=== PATIENT | male | born 1935 | race African-American/Black ===

== ENCOUNTER 2019-03-01 10:12 | Emergency (ER) | payer OTHER ==
--- NOTE | 2019-03-01 10:52 | PDOC ---
History of Present Illness - General Chief Complaint: Syncope/Near Syncope Stated Complaint: Syncope/Near Syncope Time Seen by Provider: 03/01/19 10:37 - History of Present Illness Initial Comments: The pt is an 84M w/ a history of HTN, HLD, CKD who presents for evaluation s/p syncopal fall from standing this AM. The pt reports walking to the bathroom this AM, feeling 'flushed' and sweating, then falling backwards. He is unsure of LOC. He denies hitting his head. He denies MANDEL, vision changes, chest pain before/after, dizziness before/after the event. He denies recent illness, fevers /chills, dysuria, hematuria, rash, or change in sensation. 03/01/19 10:51 Past History - Past Medical History Allergies/Adverse Reactions: Allergies Allergy/AdvReac Type Severity Reaction Status Date / Time No Known Allergies Allergy Verified 03/01/19 11:26 Home Medications: Ambulatory Orders Aspirin [ASA -] 81 mg PO DAILY 03/01/19 Azelastine HCl 1 spray NS DAILY 03/01/19 Donepezil HCl 10 mg PO DAILY 03/01/19 Latanoprost/Pf [Latanoprost 0.005% Eye Drop] 1 drop OU HS 03/01/19 Multivitamin/Iron/Folic Acid [Centrum Adults Tablet] 1 each PO DAILY 03/01/19 Nifedipine ER [Procardia Xl -] 60 mg PO DAILY 03/01/19 Propylene Glycol/Peg 400 [Systane 0.3-0.4% Eye Drops] 1 drop OP BID 03/01/19 Simvastatin 40 mg PO HS 03/01/19 Tamsulosin HCl 0.4 mg PO HS 03/01/19 Timolol 0.5% [Timoptic 0.5%] 1 drop OU DAILY 03/01/19 Review of Systems - Review of Systems Able to Perform ROS?: Yes Comments:: GENERAL/CONSTITUTIONAL: No fever or chills. No weakness HEAD, EYES, EARS, NOSE AND THROAT: No change in vision. No change in hearing. No sore throat CARDIOVASCULAR: No chest pain or shortness of breath RESPIRATORY: Denies cough, hemoptysis GASTROINTESTINAL: No nausea, vomiting, diarrhea or constipation GENITOURINARY: No dysuria, frequency, or change in urination MUSCULOSKELETAL: No joint or muscle swelling or pain. No neck or back pain SKIN: No rash NEUROLOGIC: No headache, or change in strength/sensation ENDOCRINE: No increased thirst. No abnormal weight change HEMATOLOGIC/LYMPHATIC: No anemia, easy bleeding, or history of blood clots ALLERGIC/IMMUNOLOGIC: No hives or skin allergy 03/01/19 13:54 Is the patient limited Spanish proficient: No *Physical Exam - Vital Signs Initial Vital Signs Temp Pulse Resp BP Pulse Ox 97.6 F 113 H 18 125/101 H 97 03/01/19 10:15 03/01/19 10:15 03/01/19 10:15 03/01/19 10:15 03/01/19 10:15 - Physical Exam GENERAL: Awake, alert, and oriented to person/place/time, in no acute distress HEAD: No signs of trauma, normocephalic, atraumatic EYES: PERRLA, EOMI, sclera anicteric, conjunctiva clear ENT: Hearing grossly normal, nares patent, oropharynx clear without exudates. Moist mucosa LUNGS: No distress, speaks in full sentences, clear to auscultation bilaterally HEART: Irregularly irregular rhythm and tachycardic, normal S1 and S2, no murmurs appreciated, peripheral pulses normal and equal bilaterally ABDOMEN: Soft, nontender, normoactive bowel sounds. No guarding, no rebound EXTREMITIES: Normal inspection, Normal range of motion, no edema. No clubbing or cyanosis NEUROLOGICAL: Cranial nerves II through XII grossly intact. Normal speech, normal gait, no focal sensorimotor deficits SKIN: Warm, Dry ED Treatment Course - LABORATORY CBC & Chemistry Diagram: 03/01/19 11:15 03/01/19 11:15 - ADDITIONAL ORDERS Additional order review: Laboratory Results 03/01/19 10:40 POC Glucometer 115 03/01/19 10:40 POC Glucometer 115 - RADIOLOGY Radiology Studies Ordered: Category Date Time Status HEAD CT WITHOUT CONTRAST [CT] Stat CT Scan 03/01/19 10:49 Ordered CHEST X-RAY PORTABLE* [RAD] Stat Radiology 03/01/19 10:50 Ordered Radiograph Interpretation: CT/HEAD CT WITHOUT CONTRAST Impression: Moderate atrophy. 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 Gross evidence of a focal otherwise, no gross acute intracranial pathology is identified. Correlate clinically for further evaluation RAD/CHEST X-RAY PORTABLE* Chest: Syncope. A single view of the chest reveals a large heart, normal aorta and normal jair. Lungs are clear. The angles are sharp and soft tissues are intact. There are degenerative changes. Impression: No acute chest pathology. 03/01/19 13:13 Medical Decision Making - Medical Decision Making The pt is an 84M w/ a history of HTN, HLD, CKD who presents for evaluation s/p syncopal fall from standing this AM. No leukocytosis No anemia Lytes unremarkable Cr 1.5 LFTs wnl Trop I wnl ECG w/ a-fib; HR 107; QTc 437; no axis deviation, no JOSELUIS A-fib resolved, pt HR 86 NSR Case discussed with Dr. Brito, will not start AC at this time Pt told to follow up with his Career Education Teacher Pt has appointment this week with his PCP 03/01/19 14:06 Note: The patient insists on leaving the emergency dept and is signing out against medical advice. The patient understands the risks and complications that may result from the refusal of medical care and admission which includes and permanent disability. The patient has the mental capacity of understanding the risks of refusing care and is capable of making an informed decision. The patient was instructed to return to the emergency department should his change his mind regarding medical care or should his condition worsen. The patient signed the Against Medical Advice form. 03/01/19 14:07 Discharge - Discharge Information Problems reviewed: Yes Clinical Impression/Diagnosis: Fall Qualifiers: Encounter type: initial encounter Qualified Code(s): W19.XXXA - Unspecified fall, initial encounter Syncope Qualifiers: Syncope type: unspecified Qualified Code(s): R55 - Syncope and collapse Condition: Good Disposition: AGAINST MEDICAL ADVICE - Admission No - Follow up/Referral Referrals: Flash Mojica [Primary Care Provider] - - Patient Discharge Instructions Patient Printed Discharge Instructions: DI for Syncope in Adults (Fainting) Additional Instructions: You were seen in the Emergency Department for evaluation after a fall. You initial labs and imaging were unremarkable. Review the handout provided. Follow up with your mannequin wig maker this week. Return to the Emergency Department if you have a repeat fall, any worsening symptoms, dizziness, chest pain, nausea/ vomiting, trouble breathing, vision changes, changes in sensation, or any new/ concerning symptoms. - Post Discharge Activity
[2019-03-01 11:07] VITALS: BMI 27.6
[2019-03-01] MEDS ORDERED: CEFTRIAXONE 1 GM/50 ML BAG ONE (11:13)
[2019-03-01 11:26] LABS: BASO % 0.3 % (0-2.0); EOS % 1.4 % (0-4.5); HEMATOCRIT 37.6 % (35.4-49); HEMOGLOBIN 12.5 GM/dL (11.7-16.9); LYMPH % 9.8 % (8-40); MCH 33.9 pg (25.7-33.7); MCHC 33.2 g/dl (32.0-35.9); MEAN PLT VOLUME 9.3 fl (7.5-11.1); MONO % 7.5 % (3.8-10.2); PLATELET COUNT 201 K/MM3 (134-434); RBC 3.69 M/mm3 (4.00-5.60); RDW 13.8 % (11.9-15.9); WHITE BLOOD COUNT 7.4 K/mm3 (4.0-10.0)
--- NOTE | 2019-03-01 11:36 | PDOC ---
Attending Attestation - Resident Resident Name: Mayco Mendoza - ED Attending Attestation I have performed the following: I have examined & evaluated the patient, The case was reviewed & discussed with the resident, I agree w/resident's findings & plan, Exceptions are as noted - HPI HPI: 03/01/19 12:25 Mr. Gaitan is an 84 yo M w/ a history of HTN, HLD, CKD who presents for evaluation s/p syncopal fall from standing this AM. Pt sates he was in his usual state of health in PT He stood to walk and passed out No chest pain, no palpitations No nausea or vomiting 03/01/19 13:27 - Physicial Exam PE: 03/01/19 11:35 GENERAL: The patient is in no acute distress. ENT: Moist mucous membranes. NECK: Normal range of motion, supple LUNGS: Breath sounds equal, clear to auscultation bilaterally. No wheezes, and no crackles. HEART:Regular rate and rhythm, normal S1 and S2 without murmur, rub or gallop. ABDOMEN: Soft, nontender, normoactive bowel sounds. EXTREMITIES: Normal range of motion, no edema. NEUROLOGICAL: Cranial nerves II through XII grossly intact. Normal speech. No focal neurological deficits. SKIN: Warm, Dry, normal turgor, no rashes or lesions noted. 03/01/19 12:25 03/01/19 13:33 - Medical Decision Making 03/01/19 12:26 EKG: A. fib rate of 107 bpm axis normal intervals are normal no ST elevation or depression artifact at baseline poor R wave progression 03/01/19 12:26 Laboratory Tests 03/01/19 03/01/19 03/01/19 11:15 11:15 11:15 WBC 7.4 Hgb 12.5 Hct 37.6 Plt Count 201 BUN 27.4 H Creatinine 1.5 H Troponin I < 0.02 03/01/19 13:34 Pt does not know if he has had atrial fibrillation before Will plan to admit (pt CHAD2-VASC = 5) Will contact Cardiology 03/01/19 13:37 CT head: chronic infarct in the right basal ganglia Will plan to admit 03/01/19 13:48 Admission discussed with patient and his fiancee Neither of them want him to be admitted We have discussed the risk of stroke, Afib etc Will consult [facility] (pt does not know the name of his welding specialist)
[2019-03-01 12:03] LABS: BILIRUBIN,TOTAL 0.5 mg/dL (0.2-1); BLOOD UREA NITROGEN 27.4 mg/dL (7-18); CALCIUM 8.8 mg/dL (8.5-10.1); CREATININE 1.5 mg/dL (0.55-1.3); POTASSIUM 4.3 mmol/L (3.5-5.1); TOT PROT 7.8 g/dl (6.4-8.2)
[2019-03-01 14:37] VITALS: BP 121/74; TEMP 97.9
[2019-03-01 14:51] VITALS: PULSE 70
--- NOTE | 2019-03-01 15:20 | CON.CARD ---
Consult Consult Specialty:: Cardiology Referred by:: ER Reason for Consultation:: new afib - History of Present Illness Chief Complaint: fall History of Present Illness: 84 year old man with pmh HTN, HLD, CKD, CVA 1997, reported vascular dementia, mild aortic stenosis, BPH, prostate CA s/p RT 2002, knee surgery 2016 [address] Gardner at [facility] came to ER with a near syncopal episode today. pt states that he was walking to the bathroom this am when he felt flushed, sweaty then fell backwards. denies LOC. denies chest pain, sob, palpitations. pt found to be in newly diagnosed AFib on ER ekg. asymptomatic. Pt is insistent on going home and was called to evaluate if AC should be started. pt seen and examined in the ER with his family. states he is feeling well currently. echo 01/05/18 read as hyperdynamic LV, bileaflet MV prolapse, mild MR, Fibrocalcific AV, mild pulm Htn EF about 65%, ? MVP, mild MR, mild aortic stenosis - History Source History Provided By: Patient, Family Member, Significant Other Limitations to Obtaining History: No Limitations - Past Medical History SOFTWARE ENGINEER DEVELOPER: Yes: CVA Cardio/Vascular: Yes: HTN, Hyperlipdemia - Alcohol/Substance Use Hx Alcohol Use: No - Smoking History Smoking history: Never smoked Have you smoked in the past 12 months: No - Social History Usual Living Arrangement: With Significant Other Place of : [facility] History of Recent Travel: No Home Medications - Allergies Allergies/Adverse Reactions: Allergies Allergy/AdvReac Type Severity Reaction Status Date / Time No Known Allergies Allergy Verified 03/01/19 11:26 - Home Medications Home Medications: Ambulatory Orders Aspirin [ASA -] 81 mg PO DAILY 03/01/19 Azelastine HCl 1 spray NS DAILY 03/01/19 Donepezil HCl 10 mg PO DAILY 03/01/19 Latanoprost/Pf [Latanoprost 0.005% Eye Drop] 1 drop OU HS 03/01/19 Multivitamin/Iron/Folic Acid [Centrum Adults Tablet] 1 each PO DAILY 03/01/19 Nifedipine ER [Procardia Xl -] 60 mg PO DAILY 03/01/19 Propylene Glycol/Peg 400 [Systane 0.3-0.4% Eye Drops] 1 drop OP BID 03/01/19 Simvastatin 40 mg PO HS 03/01/19 Tamsulosin HCl 0.4 mg PO HS 03/01/19 Timolol 0.5% [Timoptic 0.5%] 1 drop OU DAILY 03/01/19 Family Medical History Family History: Denies Review of Systems - Review of Systems Constitutional: denies: No Symptoms, Chills, Diaphoresis, Fever, Lethargy, Loss of Appetite, Malaise, Night Sweats, Unintentional Wgt. Loss, Weakness, Other Eyes: denies: No Symptoms, Blind Spots, Blurred Vision, Double Vision, Eye Pain , Floaters, Photophobia, Recent Change in Vision, Other HENT: denies: No Symptoms, Difficult Swallowing, Ear Discharge, Ear Pain, Epistaxis, Gingival Bleeding, Hearing Loss, Mouth Swelling, Nasal Congestion, Ocular Prosthesis, Throat Pain, Toothache, Ringing in Ears, Other Neck: denies: No Symptoms, Decreased ROM, Lumps, Pain on Movement, Stiffness, Swollen Glands, Tenderness, Other Cardiovascular: denies: No Symptoms, Chest Pain, Edema, Palpitations, Shortness of Breath, Other Respiratory: denies: No Symptoms, Cough, Exercise Intolerance, Hemoptysis, Orthopnea, PND, Snoring, SOB, SOB on Exertion, Wheezing, Other Gastrointestinal: denies: No Symptoms, Abdominal Pain, Bloating, Constipation, Diarrhea, Dysphagia, Indigestion, Melena, Nausea, Rectal Bleeding, Vomiting, Vomiting Blood, Other Genitourinary: denies: No Symptoms, Burning, Discharge, Dysuria, Flank Pain, Frequency, Hematuria, Incontinence, Lesions, Menses, Pain, Testicular Mass, Testicular Pain, Testicular Swelling, Urgency, Vaginal Bleeding, Other Breasts: denies: No Symptoms Reported, See HPI, Breast Implants, Discharge from Nipple, Lumps, Pain, Skin Changes, Other Musculoskeletal: denies: No Symptoms, Back Pain, Crepitus, Decreased ROM, Extremity Pain, Joint Pain, Joint Swelling, Muscle Pain, Muscle Cramps, Muscle Weakness, Other Integumentary: denies: No Symptoms, Blister, Bruising, Change in Color, Eczema, Erythema, Incision, Lesions, Lump, Pallor, Pruritis, Rash, Wound, Other Neurological: reports: Change in LOC, Unsteady Gait, Weakness. denies: No Symptoms, Change in Speech, Confusion, Dizziness, Headache, Incoordination, Numbness, Parasthesia, Pre-Existing Deficit, Seizure, Syncope, Tremors, Other Endocrine: denies: No Symptoms, Excessive Sweating, Flushing, Increased Hunger, Increased Thirst, Intolerance to Cold, Intolerance to Heat, Unexplained Weight Gain, Unexplained Weight Loss, Other Hematology/Lymphatic: denies: No Symptoms, Easily Bruised, Excessive Bleeding, Swollen Glands, Other Psychiatric: denies: No Symptoms, Altered Sleep Pattern, Anxiety, Depression, Hallucinations, Panic, Paranoia, Suicidal, Other - Risk Factors Known Risk Factors: Yes: Age, Hypercholesterolemia, Hypertension Vital Signs: Vital Signs Temperature 97.9 F 03/01/19 14:31 Pulse Rate 70 03/01/19 14:50 Respiratory Rate 16 03/01/19 14:31 Blood Pressure 121/74 03/01/19 14:31 O2 Sat by Pulse Oximetry (%) 100 03/01/19 14:31 Constitutional: Yes: No Distress, Calm Eyes: Yes: EOM Intact HENT: Yes: Atraumatic, Normocephalic Neck: Yes: Supple, Trachea Midline Respiratory: Yes: Regular, CTA Bilaterally Gastrointestinal: Yes: Normal Bowel Sounds, Soft. No: Distention, Tenderness Cardiovascular: Yes: Regular Rate and Rhythm. No: Bradycardia, Tachycardia, Pulse Irregular, Gallop, Rub, Varicosities JVD: No Carotid Bruit: No PMI: Non-Displaced Heart Sounds: Yes: S1, S2. No: Split S2, S3, S4, Clicks, Gallop, Rub, Bruit Murmur: Yes: Systolic Murmur, Grade 2 Musculoskeletal: Yes: WNL Extremities: Yes: WNL Edema: No Peripheral Pulses WNL: Yes Neurological: Yes: Alert Psychiatric: Yes: Alert - Other Data Labs, Other Data: CBC, BMP 03/01/19 11:15 03/01/19 11:15 Troponin, BNP 03/01/19 11:15 Troponin I < 0.02 Troponin, BNP 03/01/19 11:15 Troponin I < 0.02 ekg afib 107bpm, nsst Imaging - Results Chest X-ray: Report Reviewed, Image Reviewed EKG: Report Reviewed, Image Reviewed Other: Report Reviewed, Image Reviewed Assessment/Plan 84 year old man with pmh HTN, HLD, CKD, CVA 1997, reported vascular dementia, mild aortic stenosis, BPH, prostate CA s/p RT 2002, knee surgery [address] Gardner at [facility] came to ER with a near syncopal episode today. pt states that he was walking to the bathroom this am when he felt flushed, sweaty then fell backwards. denies LOC. denies chest pain, sob, palpitations. pt found to be in newly diagnosed AFib on ER ekg. asymptomatic. Pt is insistent on going home and was called to evaluate if AC should be started. pt seen and examined in the ER with his family. states he is feeling well currently. echo 01/05/18 read as hyperdynamic LV, bileaflet MV prolapse, mild MR, Fibrocalcific AV, mild pulm Htn EF about 65%, ? MVP, mild MR, mild aortic stenosis Afib-newly diagnosed -back in NSR on tele in ER -d/w pt and his significant other regarding the indication for AC for thromboembolic ppx including the risks vs benefits -pt is signing out AMA -given his fall today and possible syncope as well as pts and his sig other's hesitation to start new medication at this time would recc to hold off on starting full AC until it can be further discussed with his PMD and nibbler operator. -back in NSR, does not require AV dino blockers at this time -pt states he has fup appts next week with his doctors, agrees to discuss this further. Will see as needed. Please call with any additional questions.
--- NOTE | 2019-03-02 11:25 | EKG ---
Test Reason : Blood Pressure : / mmHG Vent. Rate : 107 BPM Atrial Rate : 110 BPM P-R Int : 000 ms QRS Dur : 078 ms QT Int : 328 ms P-R-T Axes : 000 016 268 degrees QTc Int : 437 ms POOR DATA QUALITY, INTERPRETATION MAY BE ADVERSELY AFFECTED ATRIAL FIBRILLATION WITH RAPID VENTRICULAR RESPONSE SEPTAL INFARCT , AGE UNDETERMINED ABNORMAL ECG NO PREVIOUS ECGS AVAILABLE Confirmed by DORYS RESTREPO MD ([id number]) on 03/02/2019 11:25:24 AM Referred By: Confirmed By:DORYS RESTREPO MD
== END 2019-03-01 15:10 | disposition left against medical advice (07) ==
LOC: JER 10:12
DX: R55 Syncope and collapse (principal); W18.39XA Other fall on same level, initial encounter; Y93.89 Activity, other specified; Y92.89 Other specified places as the place of occurrence of the external cause; I10 Essential (primary) hypertension; E78.5 Hyperlipidemia, unspecified; I12.9 Hypertensive chronic kidney disease with stage 1 through stage 4 chronic kidney disease, or unspecified chronic kidney disease; N18.9 Chronic kidney disease, unspecified
CPT/HCPCS: 36415; 70450-TC; 71045-TC-FY; 80053; 82962; 84484; 85025; 93005; 93010; 99284-25

== ENCOUNTER 2020-03-16 04:42 | Inpatient (IN) | payer OTHER ==
[2020-03-16] MEDS ORDERED: SODIUM CHLORIDE 0.9% 500 ML INFUS.BAG IV ONE (04:54)
[2020-03-16] MEDS ORDERED: VANCOMYCIN 1 GM in D5W (PRE-DOCKED) 1,000 MG/250 ML IVPB ONE (05:11)
[2020-03-16] MEDS ORDERED: PIPERACILLIN/TAZOB 3.375 GM 3.375 GM in DEXTROSE 5%-WATER - 50 ML IVPB ONE (05:11)
[2020-03-16 05:22] LABS: ARTERIAL BLOOD GAS BASE EXCESS -9.1 mmol/L (-2-2); ARTERIAL BLOOD GAS PO2 60.3 mmHg (80-100); ARTERIAL BLOOD GAS pH 7.335 (7.350-7.450)
[2020-03-16 05:24] VITALS: BMI 29.2
[2020-03-16 05:25] LABS: ALLENS TEST POSITIVE; VENT MODE S/T; VENT RATE 16
[2020-03-16] MEDS ORDERED: PIPERACILLIN/TAZOB 3.375 GM 3.375 GM/50 ML BAG IVPB ONE (05:31)
[2020-03-16] MEDS ORDERED: DEXAMETHASONE SOD PHOSPHATE 4 MG/1 ML VIAL IVPUSH ONE (05:43)
[2020-03-16] MEDS ORDERED: DEXAMETHASONE SOD PHOSPHATE 10 MG/1 ML VIAL ONE (05:46)
[2020-03-16] MEDS ORDERED: VANCOMYCIN 1 GRAM (PRE-DOCKED) 1,000 MG/250 ML BAG IVPB ONE (05:47)
[2020-03-16 05:54] LABS: CALCIUM 8.7 mg/dL (8.5-10.1)
[2020-03-16 05:55] LABS: ALBUMIN 3.1 g/dl (3.4-5.0); BLOOD UREA NITROGEN 50.4 mg/dL (7-18); MAGNESIUM 2.8 mg/dL (1.8-2.4)
[2020-03-16 05:57] LABS: CREATININE 2.7 mg/dL (0.55-1.3)
[2020-03-16 05:59] LABS: BILIRUBIN,TOTAL 0.7 mg/dL (0.2-1)
[2020-03-16 06:01] LABS: N-TERMINAL BNP 1346.3 pg/ml (5-450)
[2020-03-16] MEDS ORDERED: ETOMIDATE 40 MG/20 ML VIAL IVPUSH ONE (06:28)
[2020-03-16 06:29] LABS: HEMOGLOBIN 12.2 GM/dL (11.7-16.9); LYMPH % 4.1 % (8-40); MCH 32.8 pg (25.7-33.7); MEAN CELL VOLUME 99.5 fl (80-96); MEAN PLT VOLUME 9.2 fl (7.5-11.1); MONO % 5.3 % (3.8-10.2); NEUT % 90.6 % (42.8-82.8); PLATELET COUNT 198 K/MM3 (134-434); RBC 3.72 M/mm3 (4.00-5.60); RDW 14.4 % (11.9-15.9); WHITE BLOOD COUNT 13.2 K/mm3 (4.0-10.0)
[2020-03-16] MEDS ORDERED: SUCCINYLCHOLINE CHLORIDE 200 MG/10 ML VIAL IVPUSH ONE (06:29)
[2020-03-16] MEDS ORDERED: KETAMINE HCL 200 MG/20 ML VIAL ONE (06:30)
[2020-03-16] MEDS ORDERED: ETOMIDATE 20 MG/10 ML AMPUL IVPUSH ONE (06:30)
[2020-03-16] MEDS ORDERED: SUCCINYLCHOLINE CHLORIDE 200 MG/10 ML SYRINGE ONE (06:30)
[2020-03-16 06:47] LABS: POTASSIUM 6.7 mmol/L (3.5-5.1)
[2020-03-16 08:11] LABS: INR 1.08 (0.83-1.09); PROTHROMBIN TIME (PATIENT) 13.2 SEC (9.7-13.0)
[2020-03-16 08:35] LABS: ARTERIAL BLD GAS O2 SATURATION 89.1 mmHg (95-98); ARTERIAL BLOOD GAS BASE EXCESS -0.7 mmol/L (-2-2); ARTERIAL BLOOD GAS PO2 53.1 mmHg (80-100); ARTERIAL BLOOD GAS pH 7.442 (7.350-7.450)
[2020-03-16 09:14] LABS: POTASSIUM 4.4 mmol/L (3.5-5.1)
[2020-03-16 09:16] LABS: BLOOD UREA NITROGEN 51.8 mg/dL (7-18)
[2020-03-16 09:19] LABS: CREATININE 2.5 mg/dL (0.55-1.3)
[2020-03-16] MEDS ORDERED: ACETAMINOPHEN 325 MG TABLET (FP) PO PRN (11:27)
[2020-03-16] MEDS ORDERED: CEFTRIAXONE 1 GM in DEXTROSE 5%-WATER - 50 ML IVPB SCH (12:30)
[2020-03-16] MEDS ORDERED: HEPARIN NA (PORCINE) 5,000 UNITS/ML 1ML VIAL ONE (13:31)
[2020-03-16] MEDS ORDERED: CEFTRIAXONE 1 GM/50 ML BAG ONE (13:32)
[2020-03-16] MEDS ORDERED: HEPARIN NA (PORCINE) 5,000 UNITS/ML 1ML VIAL SQ SCH (14:00)
[2020-03-16 15:26] VITALS: TEMP 98.1
[2020-03-16 16:43] LABS: ARTERIAL BLD GAS O2 SATURATION 97.6 mmHg (95-98); ARTERIAL BLOOD GAS BASE EXCESS -2.5 mmol/L (-2-2); ARTERIAL BLOOD GAS PO2 100.8 mmHg (80-100); ARTERIAL BLOOD GAS pH 7.396 (7.350-7.450)
[2020-03-16 16:47] LABS: ALLENS TEST POSITIVE
[2020-03-16] MEDS ORDERED: NIFEdipine E.R 60 MG TABLET PO SCH (17:45)
[2020-03-16] MEDS ORDERED: HEPARIN INFUSION - 25,000 UNITS/500 ML INFUS.BAG IVPB ONE (18:04)
[2020-03-16] MEDS ORDERED: dilTIAZem HCL 125 MG/25 ML - 25 ML VIAL ONE (18:04)
[2020-03-16] MEDS ORDERED: HEPARIN NA (PORCINE) 5,000 UNITS/ML 1ML VIAL IVPUSH PRN ×2 (18:07)
[2020-03-16] MEDS ORDERED: dilTIAZem HCL 50 MG/10 ML - 10 ML VIAL IVPUSH ONE (18:07)
[2020-03-16] MEDS ORDERED: HEPARIN - 25,000 UNIT in SODIUM CHLORIDE 495 ML IV SCH (18:15)
[2020-03-16] MEDS ORDERED: DILTIAZEM INJECTION 125 MG in SODIUM CHLORIDE 100 ML IVPB SCH (19:00)
[2020-03-16 19:37] LABS: EPI CELLS >36 /uL (0-25.1); HYALINE CASTS 5 /uL (0-3.1); URINE APPEARANCE TURBID; URINE BACTERIA 149 /uL (0-1359); URINE BILIRUBIN NEGATIVE (NEGATIVE); URINE COLOR YELLOW; URINE GLUCOSE (UA) NEGATIVE (NEGATIVE); URINE KETONE NEGATIVE (NEGATIVE); URINE LEUK ESTERASE NEGATIVE (NEGATIVE); URINE NITRITE NEGATIVE (NEGATIVE); URINE PROTEIN 2+ (NEGATIVE); URINE RBC 6 /uL (0-23.9); URINE UROBILINOGEN 0.2 mg/dL (0.2-1.0); URINE WBC 39 /uL (0-25.8)
[2020-03-16] MEDS ORDERED: CHLORHEXIDINE GLUCONATE 4% CLEANSER FOR DECOLONIZATION TP SCH ×2 (22:00)
[2020-03-16] MEDS ORDERED: TAMSULOSIN HCL 0.4 MG CAP PO SCH (22:00)
[2020-03-16] MEDS ORDERED: PATIENT'S OWN MEDICATION (NON-FORMULARY) (Latanoprost/Pf [Latanoprost 0.005% Eye Drop] 7.5 OU SCH (22:00)
[2020-03-16] MEDS ORDERED: DOXYCYCLINE INJECTION 100 MG in DEXTROSE 5%-WATER 100 ML IVPB SCH (22:00)
[2020-03-16] MEDS ORDERED: LATANOPROST 0.005% OPHTH SOLN 2.5ML BOTTLE OU SCH (22:00)
[2020-03-16] MEDS ORDERED: MUPIROCIN 2% TOPICAL OINTMENT FOR DECOLONIZATION NS SCH (22:00)
[2020-03-16] MEDS ORDERED: LORazepam 2 MG/ML SDV VIAL IVPUSH ONE (23:03)
[2020-03-16] MEDS ORDERED: LORazepam 2 MG/ML SDV VIAL ONE (23:23)
[2020-03-17 00:48] VITALS: BP 137/100; PULSE 36
[2020-03-17] MEDS ORDERED: MULTIVITAMINS (DAILY MVI) TABLET (FP) PO SCH (10:00)
[2020-03-17] MEDS ORDERED: PATIENT'S OWN MEDICATION (NON-FORMULARY) (Multivitamin/Iron/Folic Acid [Centrum Adults Tab PO SCH (10:00)
[2020-03-17] MEDS ORDERED: NIFEdipine E.R 60 MG TABLET PO SCH (10:00)
[2020-03-17] MEDS ORDERED: DEXAMETHASONE SOD PHOSPHATE 4 MG/1 ML VIAL IVPUSH SCH (10:00)
[2020-03-17] MEDS ORDERED: TIMOLOL 0.5% OPHTHALMIC SOL 5 ML BOTTLE OU SCH (10:00)
[2020-03-17] MEDS ORDERED: ASPIRIN 81 MG CHEWABLE TABLETS PO SCH (10:00)
[2020-03-17] MEDS ORDERED: CEFTRIAXONE 2 GM in DEXTROSE 5%-WATER 2 GM/100 ML BAG IVPB SCH (10:00)
[2020-03-17] MEDS ORDERED: AZITHROMYCIN IVPB 500 MG/250 ML BAG IVPB SCH (10:00)
[2020-03-17] MEDS ORDERED: DONEPEZIL HCL 10 MG TABLET (FP) PO SCH (22:00)
== END 2020-03-17 00:01 | disposition expired | DRG 871 ==
LOC: JER 04:42 → JERBED 08:51
PROVIDERS: ADMIT Internal Medicine Pulmonary Disease; ATTEND Internal Medicine Pulmonary Disease
PROC: 5A12012 Performance of Cardiac Output, Single, Manual (ICD-10-PCS; principal; 2020-03-17)
PROC: 5A19054 Respiratory Ventilation, Single, Nonmechanical (ICD-10-PCS; 2020-03-17)
PROC: 0CHY7BZ Insertion of Airway into Mouth and Throat, Via Natural or Artificial Opening (ICD-10-PCS; 2020-03-17)
DX: A41.89 Other specified sepsis (principal); U07.1 COVID-19; J12.82 Pneumonia due to coronavirus disease 2019; J96.01 Acute respiratory failure with hypoxia; E87.2 Acidosis; N17.9 Acute kidney failure, unspecified; N39.0 Urinary tract infection, site not specified; E78.5 Hyperlipidemia, unspecified; F03.90 Unspecified dementia, unspecified severity, without behavioral disturbance, psychotic disturbance, mood disturbance, and anxiety; R41.82 Altered mental status, unspecified; I48.91 Unspecified atrial fibrillation; N40.0 Benign prostatic hyperplasia without lower urinary tract symptoms; D72.829 Elevated white blood cell count, unspecified; I35.0 Nonrheumatic aortic (valve) stenosis; E87.5 Hyperkalemia; I12.9 Hypertensive chronic kidney disease with stage 1 through stage 4 chronic kidney disease, or unspecified chronic kidney disease; R94.31 Abnormal electrocardiogram [ECG] [EKG]; R50.9 Fever, unspecified; N18.9 Chronic kidney disease, unspecified; I46.9 Cardiac arrest, cause unspecified; Z86.73 Personal history of transient ischemic attack (TIA), and cerebral infarction without residual deficits; Z85.46 Personal history of malignant neoplasm of prostate
CPT/HCPCS: 36415; 36600; 71045-TC-FY; 80048; 80053; 81003; 82550; 82553; 82728; 82803; 83605; 83615; 83735; 83880; 84484; 85025; 85379; 85610; 85730; 86140; 86900; 87040; 87086; 87899; 93005; 93010; 99285-25; C9803; J1644; U0003